=== PATIENT | female | born 1950 | race Caucasian/White ===

== ENCOUNTER → 2018-01-18 07:40 | Outpatient (CLI) | payer MEDICARE, OTHER, SELFPAY ==
--- NOTE | 2018-01-18 08:26 | CI_ITS ---
Cerebrovascular Exam Indications: 785.9 Bruit. IMPRESSIONS 1. The bilateral vertebral arteries are patent with normal antegrade flow. 2. Study suggests less than 20% stenosis involving the right internal carotid artery and the left internal carotid artery. History: Risk factors: Hypertension. Diabetes mellitus. Carotid duplex study. Complete study and Doppler flow study including spectral analysis, color and dick scale imaging. Location: Vascular laboratory. Patient status: Outpatient. Tables: Arterial flow: + +---------+--------+ Location V sys V ed + +---------+--------+ Right CCA - proximal 73.1cm/s 21.2cm/s + +---------+--------+ Right CCA - distal -95.9cm/s 28.3cm/s + +---------+--------+ Right ECA -91.1cm/s -------- + +---------+--------+ Right ICA - proximal 105cm/s 30.6cm/s + +---------+--------+ Right ICA - mid 77cm/s 26.7cm/s + +---------+--------+ Right ICA - distal 51.9cm/s 15.7cm/s + +---------+--------+ Right vertebral 48.7cm/s -------- + +---------+--------+ Left CCA - proximal 171cm/s 33.8cm/s + +---------+--------+ Left CCA - distal 88.8cm/s 19.6cm/s + +---------+--------+ Left ECA 81.7cm/s -------- + +---------+--------+ Left ICA - proximal 73.1cm/s 14.9cm/s + +---------+--------+ Left ICA - mid 94.4cm/s 33.2cm/s + +---------+--------+ Left ICA - distal 102cm/s 35.5cm/s + +---------+--------+ Left vertebral 66.8cm/s -------- + +---------+--------+ Velocity ratios: + + + + + Right, V ed Left, V sys Left, V ed + + + + + Max ICA/dist CCA 1.08 1.15 1.81 + + + + + (Report amended ) Electronically signed by: Kali Judge [id number]
--- NOTE | 2018-01-18 08:26 | CA_ITS ---
PROCEDURE: 2-D M-mode and color Doppler study INDICATIONS FOR THE TEST: Chest pain COPD Heart Murmur Tobacco Smoking Palpitations Fatigue Syncope Edema HypertensionXDiabetes MellitusX Rheumatic Fever SOB PRINCE Obesity Hyperlipidemia Family History HD Additional History CAD PATIENT INFORMATION HEIGHT: 63 WEIGHT:175 GENDER: Female B/P:132/80 2-D/M-MODE INTERPRETATION: 2-D MEASUREMENTS OBSERVED VALUES IN CMS Right Ventricular Dimension (RVDd) .7 Interventricular Septum (Thickness)(IVsd) 1.1 Left Ventricular Internal Dimensions(LVIDd) 5.6 Left Ventricular Posterior Wall (Thickness)(LVPWd) 1.1 Aortic Root 3.4 Aortic Cusp Separation 2.0 Left Atrial Dimensions (LAD) 2.4 2D 1. Left atrium is qualitatively mildly enlarged, left ventricle is normal size, mild concentric left ventricular hypertrophy, visually estimated ejection fraction 55% with no regional wall motion abnormality. 2. The right atrium and right ventricle are normal size and contractility. 3. The aortic valve is minimally thickened and fibrosed. 4. The mitral and tricuspid valve leaflets are minimally thickened. 5. The pulmonic valve is poorly visualized. 6. No significant pericardial effusion noted. DOPPLER INTERROGATION: Doppler interrogation of the aortic, mitral and tricuspid valvular presence of mild mitral and tricuspid regurgitation, tricuspid regurgitant jet velocity is inadequate for calculation of the right ventricular systolic pressure, grade 1 diastolic dysfunction seen with tissue Doppler evidence of raised left atrial pressure. CONCLUSION: 1. Mildly enlarged left atrium, normal left ventricular size, mild concentric left ventricular hypertrophy, visually estimated ejection fraction 55% with no regional wall motion abnormality, grade 1 diastolic dysfunction seen with tissue Doppler evidence of raised left atrial pressure. 2. Mild mitral and tricuspid regurgitation 3. No significant pericardial effusion noted.
== END ==
PROVIDERS: PCP Family Medicine; Visit Provider Nurse Practitioner
DX: R07.9 Chest pain, unspecified (principal); I25.10 Atherosclerotic heart disease of native coronary artery without angina pectoris; R09.89 Other specified symptoms and signs involving the circulatory and respiratory systems
CPT/HCPCS: 93017; 93306; 93880

== ENCOUNTER → 2018-12-12 10:09 | Outpatient (CLI) | payer MEDICARE, OTHER, SELFPAY ==
--- NOTE | 2018-12-12 10:17 | XR_ITS ---
PROCEDURE: XR KNEE LT 3V CLINICAL INDICATION: LT KNEE PAIN, COMPARISON: No exams were available for comparison FINDINGS: No fracture or dislocation. No lytic or blastic change. There is normal mineralization. There is moderate narrowing of the medial joint compartment with mild medial femoral condyle and medial tibial plateau spurring and subchondral sclerosis. There is also moderate narrowing of the patellofemoral joint space with superior posterior small patellar spur. Other findings:There is some increased density in the suprapatellar bursa. IMPRESSION: Osteoarthritis as described above with small joint effusion. Dictated by: Rivas Bowling 12/12/2018 11:10 Electronically signed by Rivas Bowling in [place] 12/12/2018 11:10
== END ==
PROVIDERS: PCP Family Medicine; Visit Provider Nurse Practitioner
DX: M25.562 Pain in left knee (principal)
CPT/HCPCS: 73562

== ENCOUNTER → 2018-12-24 13:33 | Outpatient (CLI) | payer MEDICARE, OTHER, SELFPAY ==
--- NOTE | 2018-12-24 13:35 | MR_ITS ---
PROCEDURE: MR KNEE LT WO CON CLINICAL INDICATION: ACUTE PAIN OF LEFT KNEE, LEFT MEDIAL KNEE PAIN Acute left knee pain, medial pain, osteoarthritis COMPARISON: XR KNEE LT 3V from 12/12/2018 TECHNIQUE: Routine multiplanar multi echo sequences are performed without gadolinium enhancement. FINDINGS: The cruciate ligaments, collateral ligaments, patellar tendon, and quadriceps tendon appear intact. There are severe osteoarthritic changes worse at the medial compartment and patellofemoral joint. The lateral meniscus has an unremarkable appearance. There is diffuse thinning of the medial meniscus with extrusion of the medial meniscus medially although no definite tear is evident within the medial meniscus, is it extremely thin and along its mid and anterior aspect suggesting diffuse maceration. There is a small amount of subchondral edema involving the medial and lateral tibial plateau as well as the subchondral surface of the medial femoral condyle. There is mild thinning of the patellar cartilage. There is a moderate-sized knee joint effusion the mainly in the suprapatellar region. A Damon's cyst is not identified. IMPRESSION: 1. Severe osteoarthritic changes as described above with moderate-sized knee joint effusion. 2. Diffuse thinning of the body and anterior aspect of the medial meniscus suggesting meniscal maceration. Dictated by: Kali Judge MD 12/25/2018 05:21 Electronically signed by Kali Judge MD in [place] 12/25/2018 05:21
--- NOTE | 2018-12-24 14:35 | US_ITS ---
PROCEDURE: US THYROID CLINICAL INDICATION: HYPOTHYROIDISM, DYSPHAGIA Dysphagia COMPARISON: No exams were available for comparison FINDINGS: Right lobe: 4.1 x 1.5 x 1.9 cm. There is diffuse heterogeneous echogenicity but no discrete nodule Left lobe: 3.9 x 1.3 x 1.9 cm. There is diffuse heterogeneous echogenicity but no discrete nodule Isthmus: 3 mm Additional findings: IMPRESSION: Heterogeneous echogenicity of the thyroid without discrete nodule. Dictated by: Kali Judge MD 12/24/2018 17:54 Electronically signed by Kali Judge MD in [place] 12/24/2018 17:54
== END ==
PROVIDERS: PCP Nurse Practitioner; Visit Provider Nurse Practitioner
DX: M25.562 Pain in left knee (principal); E03.9 Hypothyroidism, unspecified; R13.10 Dysphagia, unspecified
CPT/HCPCS: 73721; 76536

== ENCOUNTER → 2020-05-05 11:05 | Outpatient (CLI) | payer MEDICARE, OTHER, SELFPAY ==
--- NOTE | 2020-05-05 11:16 | MR_ITS ---
PROCEDURE: MR LUMBAR SPINE WO CON CLINICAL INDICATION: BACK PAIN Right sided lbp with rt leg pain, numbness, and tingling x1wk. No injury. No prior. COMPARISON: MR MR KNEE LT WO CON from 12/24/2018 TECHNIQUE: Standard multiplanar multiecho sequences are performed without contrast. 3-D MIP and myelographic images are also rendered and reviewed FINDINGS: There is normal alignment. The spinal cord ends at the L1 level. T12-L1, L1-L2 and L2-L3 have an unremarkable appearance. L3-L4: Mild facet the hypertrophic change with mild bilateral lateral recess narrowing. L4-5: Minimal bulging disc with moderate facet and ligamentum hypertrophy with bilateral lateral recess and foraminal narrowing slightly greater on the left. There is some transverse narrowing of the canal at this level. L5-S1: Mild bulging disc with moderate facet and ligamentum hypertrophy. There is moderate to severe bilateral foraminal narrowing from the facet hypertrophic change which may be impinging upon the exiting L5 nerve roots on both sides No extruded herniated disc or canal stenosis. Soft tissue edema noted in the posterior paraspinal region mild osteoarthritic changes are present involving the SI joints. IMPRESSION: 1. L3-L4: Mild facet the hypertrophic change with mild bilateral lateral recess narrowing. 2. L4-5: Minimal bulging disc with moderate facet and ligamentum hypertrophy with bilateral lateral recess and foraminal narrowing slightly greater on the left. There is some transverse narrowing of the canal at this level. 3. L5-S1: Mild bulging disc with moderate facet and ligamentum hypertrophy. There is moderate to severe bilateral foraminal narrowing from the facet hypertrophic change which may be impinging upon the exiting L5 nerve roots on both sides 4. No extruded herniated disc or canal stenosis. Soft tissue edema noted in the posterior paraspinal region mild osteoarthritic changes are present involving the SI joints. Dictated by: Kali Jduge MD 05/07/2020 08:40 Kali Judge MD in [place] 05/07/2020 08:40
== END ==
PROVIDERS: PCP Family Medicine; Visit Provider Nurse Practitioner
DX: M54.5 Low back pain (principal)
CPT/HCPCS: 72148; 76376

== ENCOUNTER → 2020-06-01 08:50 | Outpatient (POV) | payer MEDICARE, OTHER, SELFPAY ==
[2020-06-01 09:16] VITALS: BP 135/88; PULSE 85; RESP 18; O2SAT 98; BMI 30.7
--- NOTE | 2020-06-01 12:54 | HMH.PMCON ---
Assessment and Plan (1) Sacroiliitis Status: Chronic Category: Medical Code(s): M46.1 - Sacroiliitis, not elsewhere classified - Assessment and plan all Dx Assessment and Plan for all problems:: Schedule patient for right SI joint injection. I will follow-up with her after this reassess her symptoms at that time she has been instructed to call the office if she has any issues prior to her next appointment. Dr. Posey has reviewed this note and agrees with this plan of care. This note was dictated using voice recognition software and may contain errors or omissions HPI - Data of Consult Consult date: 06/01/20 Requesting Physician: Carmen Martines APRN Primary Care Provider: Madonna Dallas APRN - Consult Narrative Reason for consult: Back pain History of present illness: Ms. Hernandez is a 69 year old female who presents today for consultation regards to her low back pain. Patient has pain over her right SI joint radiating into her groin. Patient does not have radiation down her entire leg. Patient states she is had this pain for about a month. She rates it an 8 out of 10. She is tried and failed heat, ice, Aleve, muscle relaxers, leaning forward. Patient states that going from seated to standing is very difficult. She is a positive Faisal test SI joint compression test Kimber's test on the right side. Patient currently in physical therapy. Patient I discussed injection therapy she is interested in pursuing this. CC: Carmen Martines APRN [facility] History I have reviewed the patient's past medical history: Yes Medical History: Reports:: Diabetes Mellitus Type 2, Hyperlipidemia, Hypertension Denies:: Cancer, Diabetes Mellitus Type 1, MRSA *Have you ever received a pneumonia vaccine?: Yes *Have you received a flu vaccine this season?: Yes Other Medical History: Reports: Arthritis, Thyroid Disease Laterality Cases: Left: Total Knee Replacement Other Surgeries: Yes: No Previous Surgery, Colonoscopy, Colon Resection, Tubal Ligation Amputation: No Fractures: No - *Social History Smoking Status: Never smoker Alcohol Intake: never Substance Use Type: denies use *Occupational Status:: other Housing: house Household Members: other *Travel in the last 8 weeks: None Family Hx:: Unable to obtain Review of Systems - Review of Systems ROS General: no recent weight change, no fever, no sleep disturbances Respiratory: no cough, no shortness of air, no recurring pulmonary infections Cardiovascular/Peripheral Vascular: No chest pain, No palpitations, no edema, no shortness of breath. Gastrointestinal: no new onset incontinence, normal bowel movements reported Genitourinary: no new onset incontinence Musculoskeletal: SI joint pain Psychiatric: normal mood/ affect Neurological: [denies new onset weakness in extremities], [denies new onset balance issues] Meds Home Medications Medication Instructions Recorded Confirmed Type glyburide 5 mg-metformin 500 mg 1 tab PO BID 01/15/18 02/18/20 History tablet levothyroxine 112 mcg tablet PO 30 Days #30 tab 01/15/18 02/18/20 History losartan 100 PO 30 Days #30 tab 01/15/18 02/18/20 History mg-hydrochlorothiazide 25 mg tablet Sitagliptin Phosphate [Januvia 25 mg PO DAILY 06/01/20 06/01/20 History 25mg Tablet] Allergies Allergy/AdvReac Type Severity Reaction Status Date / Time Penicillins Allergy Mild I-HIVES Verified 02/18/20 11:09 Objective Vital signs: Pulse Resp BP Pulse Ox 85 18 135/88 98 06/01/20 09:16 06/01/20 09:16 06/01/20 09:16 06/01/20 09:16 Narrative: Physical Exam General: Alert and oriented x3, no acute distress, pleasant and cooperative, [on room air] Lungs: Resps E/U, Symmetrical chest expansion, Eyes: PERRL Musculoskeletal: Flexion and extension of lumbar spine somewhat guarded secondary to pain, deep tendon reflexes normal, strength in upper and lower extremities [5/5], antalgic gait
== END ==
PROVIDERS: PCP Nurse Practitioner Family; Visit Provider Clinical Nurse Specialist Family Health
DX: M46.1 Sacroiliitis, not elsewhere classified (principal)
CPT/HCPCS: 99202; G0463

== ENCOUNTER 2020-06-05 11:02 | Day surgery (SDC) | payer MEDICARE, OTHER, SELFPAY ==
[2020-06-05 11:47] VITALS: BP 190/111; PULSE 92; RESP 18; TEMP 36.6; O2SAT 98; BMI 30.7
--- NOTE | 2020-06-05 11:59 | P.PCN_ITS ---
- Procedure Date: 06/05/20 Time: 11:59 Anesthesiologist:: Carter Posey MD Complications:: None Pre-procedure Diagnosis:: Sacroiliitis Post-procedure Diagnosis:: Same Indications for Procedure:: Patient is a pleasant 69-year-old white female who we are treating for right- sided hip pain. She is tender over her right SI joint. She does have a positive Kimber's test on the right side. She is positive Faisal test on the right side. She has positive SI joint compression test on the right side. She is positive distraction test on the right side. We will do a right SI joint injection under fluoroscopy today. Procedure Details:: Right SI joint injection under fluoroscopy Informed consent was obtained and the risks and benefits of the procedure was going to the patient. Patient was taken to the procedure room. Patient was placed prone on the procedure table. The right hip was prepped using ChloraPrep. The skin and subcutaneous tissues were anesthetized using lidocaine. I placed a 22-gauge spinal needle into the inferior aspect of the right SI joint. Needle placement was confirmed with dye. After this we injected 5 mL bupivacaine 0.25% and Depo-Medrol 40 mg into the right SI joint. The patient tolerated the procedure well with no complication. Plan and Disposition:: We will follow-up with her in 2 weeks. Will reevaluate symptoms at that time.
[2020-06-05 12:04] VITALS: BP 125/85; PULSE 74; RESP 18; O2SAT 98
[2020-06-05 12:05] VITALS: BP 125/78; PULSE 78; RESP 18; O2SAT 98
[2020-06-05 12:10] VITALS: BP 190/98; PULSE 90; RESP 20; O2SAT 98
== END 2020-06-05 12:10 | disposition home or self-care (01) ==
LOC: SC.PAINP 11:03
PROVIDERS: PCP Family Medicine; Visit Provider Anesthesiology
DX: M46.1 Sacroiliitis, not elsewhere classified (principal); I10 Essential (primary) hypertension; E11.9 Type 2 diabetes mellitus without complications; E03.9 Hypothyroidism, unspecified; Z88.0 Allergy status to penicillin; K21.9 Gastro-esophageal reflux disease without esophagitis; Z79.899 Other long term (current) drug therapy
CPT/HCPCS: 27096; G0260; J1040; Q9966

== ENCOUNTER → 2020-08-14 15:08 | Outpatient (CLI) | payer MEDICARE, OTHER, SELFPAY ==
--- NOTE | 2020-08-14 15:10 | CT_ITS ---
PROCEDURE: CT PELVIS WO CON CLINICAL INDICATION: PAIN OF BACK AND RT LOWER EXTREMITY COMPARISON: MR MR LUMBAR SPINE WO CON from 05/05/2020 TECHNIQUE: Axial images obtained with sagittal and coronal reformats. All CT scans at the facility use one or more dose reduction, viz: automated exposure control, ma/kV adjustment per patient size (including targeted exams where dose is matched to indication, i.e. head), or iterative reconstruction technique. FINDINGS: There are degenerative changes in the lower lumbar spine with mild bulging disc at L4-5 and L5-S1 and mild facet arthritic changes. Minimal osteoarthritic changes noted of the SI joints. No bony destruction or lytic or blastic process. Mild osteoarthritic changes are present involving both hips. The no acute fracture or dislocation. There is a mildly prominent spur along the lateral aspect of the acetabular roof which could cause femoral acetabular impingement. No obvious CAM deformity of the femoral head or neck. Mild bony hypertrophy is also present at the greater trochanter on the right. There is diverticulosis of the sigmoid colon. No evidence of diverticulitis. No abnormal fluid collections IMPRESSION: Mild osteoarthritic change of the SI joints and hips Mildly prominent spur along the acetabular roof on the right which could result in femoral acetabular impingement. Sigmoid diverticulosis. Dictated by: Kali Judge MD 08/17/2020 08:11 Kali Judge MD in [place] 08/17/2020 08:11
== END ==
PROVIDERS: PCP Family Medicine; Visit Provider Orthopaedic Surgery Orthopaedic Surgery of the Spine
DX: M54.5 Low back pain (principal); M79.604 Pain in right leg
CPT/HCPCS: 72192

== ENCOUNTER → 2020-11-10 12:43 | Outpatient (CLI) | payer MEDICARE, OTHER, SELFPAY ==
--- NOTE | 2020-11-10 12:49 | XR_ITS ---
PROCEDURE: XR KNEE LT 3V CLINICAL INDICATION: PT RPTS FALLING AND LT KNEE SWELLING COMPARISON: CR XR KNEE LT 3V from 12/12/2018 FINDINGS: No fracture or dislocation. No lytic or blastic change. There is normal mineralization. Status post total knee arthroplasty with good alignment. There is a medium suprapatellar effusion. Other findings:None. IMPRESSION: Good alignment status post total knee arthroplasty with medium size knee joint effusion Dictated by: Kali Judge MD 11/10/2020 14:35 Kali Judge MD in [place] 11/10/2020 14:35
== END ==
PROVIDERS: PCP Family Medicine; Visit Provider Family Medicine
DX: M25.562 Pain in left knee (principal)
CPT/HCPCS: 73562

== ENCOUNTER → 2020-11-22 10:24 | Outpatient (CLI) | payer MEDICARE, OTHER, SELFPAY | PROVIDERS: PCP Nurse Practitioner Family; Visit Provider Ophthalmology | DX: Z01.812 Encounter for preprocedural laboratory examination (principal); Z11.52 Encounter for screening for COVID-19 | CPT/HCPCS: C9803; U0003; U0005 ==

== ENCOUNTER 2020-11-24 07:12 | Day surgery (SDC) | payer MEDICARE, OTHER, SELFPAY ==
[2020-11-18 14:08] VITALS: BMI 30.6
[2020-11-24] VITALS (7 sets, daily range): BP systolic 142–189; BP diastolic 78–96; PULSE 67–88; RESP 16–18; TEMP 36.6–36.8; O2SAT 96–100
[2020-11-26 07:48] LABS: POC Glucose,Bedside 231 (70-110)
== END 2020-11-24 10:20 | disposition home or self-care (01) ==
LOC: OR 07:14
PROVIDERS: PCP Family Medicine; Visit Provider Ophthalmology
DX: H25.813 Combined forms of age-related cataract, bilateral (principal); H53.149 Visual discomfort, unspecified; H02.831 Dermatochalasis of right upper eyelid; H02.834 Dermatochalasis of left upper eyelid; E11.9 Type 2 diabetes mellitus without complications; I10 Essential (primary) hypertension; E03.9 Hypothyroidism, unspecified; Z88.0 Allergy status to penicillin; Z80.9 Family history of malignant neoplasm, unspecified; Z83.3 Family history of diabetes mellitus; Z82.49 Family history of ischemic heart disease and other diseases of the circulatory system; Z79.84 Long term (current) use of oral hypoglycemic drugs; Z79.899 Other long term (current) drug therapy
CPT/HCPCS: 66984; 82962; V2632

== ENCOUNTER → 2020-12-07 08:47 | Outpatient (CLI) | payer MEDICARE, OTHER, SELFPAY | PROVIDERS: Visit Provider Ophthalmology | DX: Z01.812 Encounter for preprocedural laboratory examination (principal); Z11.52 Encounter for screening for COVID-19; U07.1 COVID-19 | CPT/HCPCS: C9803; U0003; U0005 ==

== ENCOUNTER → 2020-12-11 09:07 | Outpatient (CLI) | payer MEDICARE, OTHER, SELFPAY | PROVIDERS: PCP Nurse Practitioner Family; Visit Provider Nurse Practitioner | DX: Z20.822 Contact with and (suspected) exposure to COVID-19 (principal) | CPT/HCPCS: C9803; U0003; U0005 ==

== ENCOUNTER → 2021-02-18 09:32 | Outpatient (CLI) | payer MEDICARE, OTHER, SELFPAY | PROVIDERS: Visit Provider Internal Medicine Gastroenterology | DX: Z01.812 Encounter for preprocedural laboratory examination (principal); Z11.52 Encounter for screening for COVID-19 | CPT/HCPCS: C9803; U0003; U0005 ==

== ENCOUNTER 2022-07-27 10:49 | Emergency (ER) | payer MEDICARE, OTHER, SELFPAY ==
[2022-07-27 10:56] VITALS: BP 175/95; PULSE 88; RESP 16; TEMP 36.6; O2SAT 96; BMI 4724.2
--- NOTE | 2022-07-27 11:11 | EXP.UTC ---
Discharge Plan Disposition Patient Disposition: Home, Self-Care Condition: Good Prescriptions Prescriptions: New methocarbamol 500 mg tablet 500 mg PO BID PRN (Reason: muscle spasm) Qty: 12 0RF No Action levothyroxine 112 mcg tablet 112 mcg PO DAILY 30 Days Qty: 30 losartan-hydrochlorothiazide 100-25 mg tablet 100 mg PO DAILY 30 Days Qty: 30 glyburide-metformin 5-500 mg tablet 1 tab PO BID sitagliptin phosphate 25 MG tablet 25 mg PO DAILY Referrals Follow up/Referrals: Riana Garcia APRN [Primary Care Provider] - See instructions Activity Restrictions/Add. Instructions Additional Instructions/Restrictions: *Ibuprofen butch 6 hours with meal as needed for pain/inflammation if you can take it *Remember you had a Toradol shot in the clinic today, which is similar to Motrin *Not additional anti-inflammatory like motrin, aleve, advil with the above amount of ibuprofen. You can still take Tylenol every 4 hours as needed if you need something else for pain *Ice 20 minutes every 2 hours for the first 48 hours after the initial injury followed by moist heat every 20 minutes 3-4 times a day to affected area *Muscle relaxer every 12 hours as needed for muscle spasms but remember, it WILL cause drowsiness You cannot take it and drive, operate machinery or care for small children. *Keep this area active, no movement leads to more stiffness, However take it easy and avoid heavy lifting pushing or pulling *Follow up with you family doctor if no improvement for further treatment Clinical Impressions Clinical Impression: Muscle spasm Instructions Patient Instructions: Methocarbamol, DI for Muscle Spasm Discharge ED Provider: Cee Marie [facility] [place] HPI General Stated complaint: Rt shoulder pain, no accident Mode of Arrival: Ambulatory Source of Information: Patient Limitations: No Limitations Time Seen by Provider: 07/27/22 11:11 Description of Symptoms (Recalled from Triage Doc. by RN): pt c/o R sided neck pain that radiates into her R shoulder. pain is sharp in nature 8/10 HEENT Symptoms (Recalled from RN notes): No Resp Symptoms (Recalled from RN notes): No Skin Symptoms (Recalled from RN notes): No MS Symptoms (Recalled from RN notes): Yes Functional Status (Recalled from RN notes): wnl History of Present Illness Provider Complaint: Patient states that she has been having catching like pain in the right side of her neck that goes down to right shoulder area States that feels like spasms that is sharp in nature Denies known injury States that it is worse when she raises her arm or turns her head and when she tries to sleep Related Data Home Medications Medication Instructions Recorded Confirmed glyburide 5 mg-metformin 500 mg 1 tab PO BID Diabetes 01/15/18 12/04/20 tablet levothyroxine 112 mcg tablet 112 mcg PO DAILY thyroid 30 days 01/15/18 12/04/20 #30 tabs losartan 100 100 mg PO DAILY blood pressure 30 01/15/18 12/04/20 mg-hydrochlorothiazide 25 mg tablet days #30 tabs sitagliptin phosphate 25 mg tablet 25 mg PO DAILY Diabetes 06/01/20 12/04/20 Previous Rx's Medication Instructions Recorded methocarbamol 500 mg tablet 500 mg PO BID PRN muscle spasm #12 07/27/22 tabs Allergies Allergy/AdvReac Type Severity Reaction Status Date / Time Penicillins Allergy Mild I-HIVES Verified 06/05/20 11:53 Worker's Comp Is this a Worker's Comp case?: No [facility] Disclaimer: The information contained in this section may have been updated after the patient was seen, as this information can be updated by other users. Social History Smoking Status: Never smoker alcohol intake: never substance use type: denies use current occupational status: retired Travel in the last 8 weeks: None household members: spouse housing: house current occupational exposures/hazards: No caffeine: Yes ROS Obtained: Yes All systems reviewed & no additional complaints except
[2022-07-27 11:55] VITALS: BP 175/95; PULSE 88; RESP 16; TEMP 36.6
== END 2022-07-27 11:59 | disposition home or self-care (01) ==
PROVIDERS: Emergency Provider Nurse Practitioner; PCP Nurse Practitioner Family
DX: M62.838 Other muscle spasm (principal); M54.2 Cervicalgia; M25.511 Pain in right shoulder; E03.9 Hypothyroidism, unspecified; I10 Essential (primary) hypertension; E11.9 Type 2 diabetes mellitus without complications; Z79.84 Long term (current) use of oral hypoglycemic drugs
CPT/HCPCS: 96372; 99204; 99212; G0463

== ENCOUNTER → 2022-08-15 07:51 | Outpatient (CLI) | payer MEDICARE, OTHER, SELFPAY ==
--- NOTE | 2022-08-15 07:55 | XR_ITS ---
FINAL REPORT CLINICAL HISTORY: RT SHOULDER PAIN, no known injury FINDINGS: 3 views of the right shoulder were obtained. There is no acute fracture or dislocation. Moderate degenerative change of the AC joint. Glenohumeral joint is intact. There are no soft tissue abnormalities. IMPRESSION: No acute process. Reviewed, Interpreted and Dictated by Anupama Gonzalez MD Transcribed by Jorje Tran Authenticated and [facility]
--- NOTE | 2022-08-15 07:55 | XR_ITS ---
FINAL REPORT CLINICAL HISTORY: CERVICALGIA, no known injury FINDINGS: CERVICAL SPINE Five views of the cervical spine were obtained. There is no acute fracture or subluxation. There is mild degenerative disc disease, most pronounced at C7-T1. Vertebral body heights are preserved. Precervical soft tissues are normal. IMPRESSION: Mild degenerative disc disease without acute bony abnormality. Reviewed, Interpreted and Dictated by Pennie Mosquera MD Transcribed by Abiola Tran Authenticated and [facility]
== END ==
PROVIDERS: PCP Nurse Practitioner Family; Visit Provider Nurse Practitioner Family
DX: M54.2 Cervicalgia (principal); M25.511 Pain in right shoulder
CPT/HCPCS: 72050; 73030

== ENCOUNTER 2023-08-22 08:33 | Outpatient (CLI) | payer MEDICARE, OTHER, SELFPAY ==
--- NOTE | 2023-08-22 08:47 | XR_ITS ---
FINAL REPORT TECHNIQUE: 3 views CLINICAL HISTORY: NECK PAIN COMPARISON: 08/15/2022 FINDINGS: There is no fracture present. There is no malalignment. Mild and moderate degenerative changes are present, with multilevel facet arthropathy. No significant changes noted since the prior exam of August 2022. IMPRESSION: No acute process. Reviewed, Interpreted and Dictated by Jose Potter III, MD Transcribed by Freda Lerner Authenticated and [facility]
== END 2023-08-22 23:59 | disposition home or self-care (01) ==
LOC: RAD 08:36
PROVIDERS: PCP Nurse Practitioner Family; Visit Provider Nurse Practitioner Family
DX: M54.2 Cervicalgia (principal)
CPT/HCPCS: 72040

== ENCOUNTER 2023-09-01 12:20 | Outpatient (CLI) | payer MEDICARE, OTHER, SELFPAY ==
--- NOTE | 2023-09-01 13:14 | MM_ITS ---
PROCEDURE INFORMATION: Exam: MG Bilateral Screening 3D Mammography Exam date and time: 09/01/2023 12:58 PM Age: 73 years old Clinical indication: Screening examination. Her maternal aunt and paternal grandmother had breast cancer. TECHNIQUE: Imaging protocol: Bilateral Screening tomosynthesis and 2D mammography including computer-aided detection (CAD) when performed. COMPARISON: 1. MG DMDXUL DIG MAMM-DX UNI-LT W/CAD 01/31/2017 11:18 AM 2. MG DMDXUAVL DIG MAMM-DX UNI A/VWS-LT W/CAD 09/20/2016 1:59 PM 3. MG DMSB DIG MAMM-SCREEN OLENA W/CAD 09/06/2016 8:32 AM 4. BL US BREAST-LT COMPLETE W/AXILLA 01/31/2017 11:49 AM FINDINGS: MAMMOGRAPHY: Breast composition: There are scattered areas of fibroglandular density. BI-RADS Category 4: Suspicious. Mass: No suspicious mass. Architectural distortion: None. Calcifications: No suspicious calcifications. Asymmetric density: None. Skin thickening: None. Axillary adenopathy: None. IMPRESSION: No mammographic evidence of malignancy. Annual screening is recommended unless otherwise clinically indicated. ASSESSMENT: BI-RADS Category 1: Negative
== END 2023-09-01 23:59 | disposition home or self-care (01) ==
LOC: RAD 12:20
PROVIDERS: PCP Nurse Practitioner Family; Visit Provider Nurse Practitioner Family
DX: Z12.31 Encounter for screening mammogram for malignant neoplasm of breast (principal)
CPT/HCPCS: 77063; 77067

== ENCOUNTER 2023-09-06 09:48 | Outpatient (RCR) | payer MEDICARE, OTHER, SELFPAY | END 2023-09-06 11:00 | disposition home or self-care (01) | LOC: PT 09:48 | PROVIDERS: Visit Provider Nurse Practitioner Family | DX: M54.2 Cervicalgia (principal) | CPT/HCPCS: 97110; 97163 ==

== ENCOUNTER 2023-12-13 10:18 | Outpatient (CLI) | payer MEDICARE, OTHER, SELFPAY ==
--- NOTE | 2023-12-13 10:18 | CT_ITS ---
FINAL REPORT CLINICAL HISTORY: Left mastoid pain and swelling COMPARISON: None FINDINGS: CT SINUSES The paranasal sinuses are well aerated. There is a calcific density in the posterior portion of the left maxillary sinus that measures 1 cm in diameter. This does not appear to be related to dental roots in the maxilla, and likely represents a small osteoma. There is no fracture. There are no air-fluid levels. The ostiomeatal units are patent. IMPRESSION: Calcific density in the posterior left maxillary sinus, 1 cm in diameter, likely represents a small osteoma. Reviewed, Interpreted and Dictated by Elpidio Hope MD Transcribed by Freda Lerner Authenticated and [facility]
--- NOTE | 2023-12-13 10:18 | US_ITS ---
FINAL REPORT CLINICAL HISTORY: Hyperthyroidism COMPARISON: None FINDINGS: THYROID ULTRASOUND: The right lobe of the thyroid gland measures 5.3 x 1.7 x 1.4 cm in size. The right lobe is diffusely inhomogeneous, without a definite focal nodule identified. The left lobe of the thyroid gland measures 4.1 x 1.5 x 1.8 cm in size. The left lobe is diffusely inhomogeneous, without a definite focal nodule identified. The isthmus of the thyroid measures 5 mm in thickness. IMPRESSION: Diffusely inhomogeneous thyroid gland, with the right lobe somewhat larger than the left. No definite focal nodules are identified. The overall appearance may suggest thyroiditis or goiter. Reviewed, Interpreted and Dictated by Elpidio Hope MD Transcribed by Freda Lerner Authenticated and [facility]
== END 2023-12-13 23:59 | disposition home or self-care (01) ==
LOC: RAD 10:18
PROVIDERS: PCP Nurse Practitioner Family; Visit Provider Nurse Practitioner
DX: E06.9 Thyroiditis, unspecified (principal); E03.9 Hypothyroidism, unspecified; H92.02 Otalgia, left ear
CPT/HCPCS: 70486; 76536

== ENCOUNTER 2024-08-09 07:48 | Outpatient (CLI) | payer MEDICARE, OTHER, SELFPAY ==
--- NOTE | 2024-08-09 07:53 | US_ITS ---
FINAL REPORT CLINICAL HISTORY: ELEVATED LIVER ENZYMES COMPARISON: none FINDINGS: Sonographic images of the right upper quadrant were obtained. The pancreas is obscured. There is mild fatty infiltration of the liver. The patient is status postcholecystectomy. There is no evidence of biliary ductal dilatation.The common duct measures 6 mm which is normal for a postcholecystectomy patient. Limited images of the right kidney are unremarkable. IMPRESSION: Mild fatty liver. Reviewed, Interpreted and Dictated by Elpidio Hope MD Transcribed by Sandy Montez Authenticated and [facility]
== END 2024-08-09 23:59 | disposition home or self-care (01) ==
LOC: RAD 07:49
PROVIDERS: PCP Nurse Practitioner Family; Visit Provider Nurse Practitioner Family
DX: K76.0 Fatty (change of) liver, not elsewhere classified (principal)
CPT/HCPCS: 76705

== ENCOUNTER 2024-12-23 13:47 | Emergency (ER) | payer OTHER, SELFPAY ==
[2024-12-23 14:04] VITALS: BP 151/78; PULSE 91; RESP 15; TEMP 36.8; O2SAT 95; BMI 25.2
--- NOTE | 2024-12-23 14:10 | PC.NURSE ---
c-collar applied on patient at this time
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
--- NOTE | 2024-12-23 14:27 | XR_ITS ---
FINAL REPORT CLINICAL HISTORY: pain FINDINGS: LEFT SHOULDER 3 views of the left shoulder were obtained. There is no acute fracture or dislocation. There is degenerative joint disease. Visualized joint spaces are normally aligned. Soft tissues are unremarkable. IMPRESSION: No acute bony abnormality. Reviewed, Interpreted and Dictated by Pennie Mosquera MD Transcribed by Abiola Tran Authenticated and [facility]
--- NOTE | 2024-12-23 14:32 | ECG_ITS ---
APPROVED REPORT Exam: Resting ECG HR:82 bpm ECG Measurements Heart Rate 82 AXES MS 193 P 43 QRSd 96 QRS 25 QT 384 T 18 QTc 423 Conclusion SINUS RHYTHM NORMAL ECG UNCONFIRMED REPORT Electronically signed by : Zachery Plata, 12/23/2024 15:47:08
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
[2024-12-23 15:02] LABS: Hematocrit 38.9 % (37.0-47.0); Hemoglobin 12.9 g/dL (12.2-16.2); Immature Granulocytes % 0.4 %; Mean Corpuscular HGB Conc 33.2 g/dL (31.8-35.4); Mean Corpuscular Hemoglobin 28.6 pg (27.0-31.2); Mean Corpuscular Volume 86.3 fl (81-99); Nucleated Red Blood Cells % 0 %; Platelet Count 260 K/mm3 (142-424); Red Blood Count 4.51 M/mm3 (4.20-5.40); Red Cell Distribution Width-SD 41.5 fL; White Blood Count 8.0 K/mm3 (4.8-10.8)
[2024-12-23 15:11] LABS: Chloride 95 mmol/L (98-107)
[2024-12-23 15:12] LABS: Albumin Level 4.2 g/dl (3.5-5.0); Potassium 3.7 mmoL/L (3.5-5.1); Sodium 135 mmol/L (136-145)
[2024-12-23 15:15] LABS: Alanine Aminotransferase 26 U/L (12-78); Albumin/Globulin Ratio 1.4 (1.1-1.8); Alkaline Phosphatase 114 U/L (38-126); Anion Gap 13.7 mEq/L (5-15); Aspartate Amino Transferase 35 U/L (14-36); Bilirubin,Total 0.6 mg/dl (0.2-1.3); Blood Urea Nitrogen 35 mg/dl (7-17); Calcium 9.5 mg/dl (8.4-10.2); Carbon Dioxide 30 mmol/L (22.0-30.0); Creatinine Clearance Estimated 55 mL/min (50-200); Creatinine,Serum 1.00 mg/dl (0.52-1.04); Estimated Glomerular Filt Rate 54 ml/min (>60); GFR (African American) 66 ML/MIN (>60); Globulin 3.1 g/dL (1.3-3.2); Glucose 149 mg/dl (74-100); Lipase 107 U/L (23-300); Magnesium 1.8 mg/dl (1.6-2.3); Total Protein,Serum 7.3 g/dl (6.3-8.2)
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
[2024-12-23 15:35] LABS: Troponin I < 0.01 ng/ml (0.00-0.034)
[2024-12-23 16:22] VITALS: BP 139/77; PULSE 84; RESP 14; TEMP 36.8; O2SAT 99
[2024-12-23] MEDS: KETOROLAC 30MG/ML VIAL 30 MG IV (16:24)
== END 2024-12-23 16:32 | disposition home or self-care (01) ==
PROVIDERS: Nurse Practitioner; Emergency Provider Emergency Medicine; PCP Nurse Practitioner Family
DX: S39.012A Strain of muscle, fascia and tendon of lower back, initial encounter (principal); S29.012A Strain of muscle and tendon of back wall of thorax, initial encounter; M54.2 Cervicalgia; M62.830 Muscle spasm of back; M25.512 Pain in left shoulder; V49.40XA Driver injured in collision with unspecified motor vehicles in traffic accident, initial encounter
CPT/HCPCS: 70450; 72125; 72128; 72131; 72192; 73030; 80053; 83690; 83735; 84484; 85025; 93005; 96374; 99284; 99285; J1885